=== PATIENT | male | born 1935 | race African-American/Black ===

== ENCOUNTER 2017-02-16 07:48 | Outpatient (CLI) | payer MEDICARE, BC ==
[2017-02-16 08:06] LABS: #Eosinphils 0.3 thou/uL (0.0-0.7); #Lymphocytes 1.6 thou/uL (1.20-3.40); #Monocytes 0.4 thou/uL (0.11-0.59); #Neutrophils 4.6 thou/uL (1.40-6.50); %Basophils 0.7 % (0.0-1.0); %Eosinophils 3.6 % (0.0-10.0); %Lymphocytes 23.5 % (21.0-51.0); %Monocytes 5.8 % (0.0-10.0); Hematocrit 42.6 % (42.0-52.0); Mean Platelet Volume 7.6 fL (7.4-10.4); Red Blood Cell (RBC) Count 4.49 mill/uL (4.70-6.10); White Blood Cell (WBC) Count 6.9 thou/uL (4.8-10.8)
[2017-02-16 08:10] LABS: Bilirubin Negative (Negative); Blood, Urine Negative (Negative); Glucose, Urine (Dipstick) 250 mg/dL (Negative); Ketone, Urine Negative (Negative); Nitrite Negative (Negative); Protein, Urine (Dipstick) Trace mg/dL (Neg-Trace)
[2017-02-16 08:12] LABS: Bacteria/HPF None Seen HPF (None Seen); Hyaline Casts/LPF 0-3 HYALINE CAST LPF (0-3 Hyaline); RBC/HPF 0-3 HPF (0-3); Squamous Epithelial 0-3 HPF (0-3); WBC/HPF 0-3 HPF (0-3)
[2017-02-16 08:30] LABS: ALT (SGPT) 8 U/L (8-55); AST (SGOT) 12 U/L (5-34); Alkaline Phosphatase 76 U/L (40-150); Anion Gap 12 mmol/L (10-20); BUN (Urea Nitrogen) 35 mg/dL (8.4-25.7); Bilirubin, Direct 0.2 mg/dL (0.1-0.3); Bilirubin, Total 0.4 mg/dL (0.2-1.2); Calc. Creatinine Clearance 0 mL/min (70-130); Calcium 9.2 mg/dL (7.8-10.44); Carbon Dioxide 27 mmol/L (23-31); Chloride 106 mmol/L (98-107); Estimated GFR-MDRD 26; Protein, Total 7.3 g/dL (5.8-8.1)
--- NOTE | 2017-02-16 09:10 | ULT ---
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 FINDINGS: Comparison made with exam of 01/28/16. The patient is status post left nephrectomy. The right kidney measures 11.0 cm in length without hydronephrosis. There are cysts in the right kid jackson measuring 2.5 cm and 1.0 cm, respectively. There is a small amount of post-void residual in the urinary bladder measuring 18 mL. The largest cyst, which measures 2.5 cm on the current exam, measured 3.1 cm on the previous study. IMPRESSION: Right renal cysts. POS: [facility]
--- NOTE | 2017-02-16 09:17 | RAD ---
2 VIEWS CHEST: Date: 02/16/17 COMPARISON: 01/28/16. HISTORY: Malignant neoplasm of the left kidney. FINDINGS: Two views of the chest show normal sized cardiomediastinal silhouette. There is no evidence of conso lidation, mass, or pleural effusion. The bones are unremarkable. IMPRESSION: No evidence of acute cardiopulmonary disease. POS: [facility]
== END 2017-02-16 07:49 | disposition home or self-care (01) ==
LOC: ULT 07:48
PROVIDERS: ATTEND Urology
DX: C64.2 Malignant neoplasm of left kidney, except renal pelvis (principal); N18.9 Chronic kidney disease, unspecified; Q61.3 Polycystic kidney, unspecified
CPT/HCPCS: 36415; 71020; 76775; 80048; 80076; 81001; 85025; 87086

== ENCOUNTER 2017-05-07 08:21 | Emergency (ER) | payer MEDICARE, BC ==
[2017-05-07 09:12] LABS: #Eosinphils 0.1 thou/uL (0.0-0.7); #Lymphocytes 0.4 thou/uL (1.20-3.40); #Monocytes 0.3 thou/uL (0.11-0.59); #Neutrophils 6.6 thou/uL (1.40-6.50); %Basophils 0.2 % (0.0-1.0); %Eosinophils 0.7 % (0.0-10.0); %Lymphocytes 4.9 % (21.0-51.0); %Monocytes 3.8 % (0.0-10.0); %Neutrophils 90.3 % (42.0-75.0); Hemoglobin 14.7 g/dL (14.0-18.0); Mean Corpuscular HGB CONC 31.4 g/dL (32.0-36.0); Mean Corpuscular Volume 95.6 fl (80.0-94.0); Platelet Count 217 thou/uL (130-400); RBC Distribution Width 14.6 % (11.5-14.5); White Blood Cell (WBC) Count 7.3 thou/uL (4.8-10.8)
[2017-05-07] MEDS ORDERED: Ondansetron HCl/PF 4 MG/2 ML Vial ONE (09:14)
[2017-05-07 09:37] LABS: ALT (SGPT) 12 U/L (8-55); AST (SGOT) 15 U/L (5-34); Albumin 4.1 g/dL (3.4-4.8); Alkaline Phosphatase 71 U/L (40-150); Anion Gap 17 mmol/L (10-20); BUN (Urea Nitrogen) 40 mg/dL (8.4-25.7); Bilirubin, Total 0.6 mg/dL (0.2-1.2); CK (CPK) 112 U/L (30-200); Calc. Creatinine Clearance 0 mL/min (70-130); Calcium 9.8 mg/dL (7.8-10.44); Carbon Dioxide 23 mmol/L (23-31); Chloride 103 mmol/L (98-107); Estimated GFR-MDRD 28; Globulin 4.4 g/dL (2.4-3.5); Glucose 172 mg/dL (83-110); Lipase 76 U/L (8-78); Potassium 4.9 mmol/L (3.5-5.1); Protein, Total 8.5 g/dL (5.8-8.1); Sodium 138 mmol/L (136-145)
[2017-05-07 09:40] LABS: CKMB 2.1 ng/mL (0-6.6); Troponin I 0.015 ng/mL (< 0.028)
[2017-05-07 10:42] LABS: Bilirubin Negative (Negative); Blood, Urine Moderate (Negative); Clarity CLEAR (Clear); Glucose, Urine (Dipstick) 500 mg/dL (Negative); Leukocyte Negative (Negative); Nitrite Negative (Negative); Protein, Urine (Dipstick) 100 mg/dL (Neg-Trace); Specific Gravity, Urine 1.022 (1.002-1.036); Urobilinogen 0.2 mg/dL (0.2-1.0)
[2017-05-07 10:45] LABS: Bacteria/HPF None Seen HPF (None Seen); Hyaline Casts/LPF 0-3 HYALINE CAST LPF (0-3 Hyaline); Pathc Cast-AUWi Flag 0.27 (0-2.49); Squamous Epithelial 0-3 HPF (0-3); WBC/HPF 0-3 HPF (0-3)
--- NOTE | 2017-05-07 11:34 | CT ---
CT ABDOMEN AND PELVIS WITHOUT CONTRAST: HISTORY: Abdominal pain, nausea, vomiting, and diarrhea. Diabetes and hypertension. FINDINGS: Comparison is made with the exam of 12/05/15. There are mild dependent changes of the lung bases. No free air or free fluid is seen in the abdomen or pelvis. Absence of IV contrast reduces the sensitivity of the exam, particularly for evaluation of the solid organs. Oral contrast was administered. No calcified gallstones are seen. The patient is status post left nephrectomy. No calculi are seen in the right kidney, right ureter, or the urinary bladder. No right-sided hydroureteral nephrosis is seen. Low-density lesions in the right kidney, likely cysts, are stable. A small low-density in th e inferior aspect of the right lobe of the liver also stable. The small bowel loops are not abnormally dilated. There is colonic diverticulosis without evidence o f diverticulitis. There are vascular calcifications without evidence of aneurysmal dilatation of the abdominal aorta. A normal-appearing appendix is present. There are degenerative changes in the spi ne. IMPRESSION: 1. Colonic diverticulosis. 2. Stable low-density lesions in the liver and right kidney. 3. Status post left nephrectomy. POS: [facility]
[2017-05-07] MEDS ORDERED: Iopamidol 370 76% 50 ML VIAL FS ONE (17:02)
== END 2017-05-07 11:37 | disposition home or self-care (01) ==
LOC: ERS 08:21
DX: K52.9 Noninfective gastroenteritis and colitis, unspecified (principal); K21.9 Gastro-esophageal reflux disease without esophagitis; E78.5 Hyperlipidemia, unspecified; E11.9 Type 2 diabetes mellitus without complications; I10 Essential (primary) hypertension; F17.210 Nicotine dependence, cigarettes, uncomplicated; Z79.899 Other long term (current) drug therapy
CPT/HCPCS: 74176; 80053; 81003; 81015; 82550; 82553; 83605; 83690; 84484; 85025; 93005; 96361; 96372; 96374; J2405

== ENCOUNTER 2018-02-26 10:02 | Outpatient (CLI) | payer MEDICARE, BC ==
--- NOTE | 2018-02-26 13:08 | RAD ---
CHEST 2 VIEWS: COMPARISON: 11/18/2017. HISTORY: Malignant neoplasm of kidney. Shortness of breath. FINDINGS: Slight elongation of the aorta. Normal cardiac silhouette. Pulmonary vessels and hilum are normal. Costophrenic angles are clear. No consolidation or mass. No pneumothorax or osseous abnormalities. IMPRESSION: No acute cardiopulmonary process. POS: [facility]
== END 2018-02-26 10:03 | disposition home or self-care (01) ==
LOC: RAD 10:02
PROVIDERS: ATTEND Urology
DX: C64.2 Malignant neoplasm of left kidney, except renal pelvis (principal); N28.1 Cyst of kidney, acquired
CPT/HCPCS: 36415; 71046; 80048; 80076; 81003; 87077; 87086; 87186

== ENCOUNTER 2019-03-07 10:51 | Emergency (ER) | payer MEDICARE, BC ==
--- NOTE | 2019-03-07 11:40 | RAD ---
XR Lumbar Spine 2 Or 3 View HISTORY: Bilateral hip pain radiating down legs. Back pain FINDINGS: No fracture, subluxation or bony destruction is seen. There are degenerative changes in the lower lum bar spine with mild levoscoliosis.
== END 2019-03-07 13:20 | disposition home or self-care (01) ==
LOC: ERS 10:51
DX: M46.1 Sacroiliitis, not elsewhere classified (principal); K21.9 Gastro-esophageal reflux disease without esophagitis; E78.5 Hyperlipidemia, unspecified; E11.9 Type 2 diabetes mellitus without complications; I10 Essential (primary) hypertension; Z87.891 Personal history of nicotine dependence; Z79.899 Other long term (current) drug therapy
CPT/HCPCS: 72100

== ENCOUNTER 2019-03-13 08:35 | Outpatient (CLI) | payer MEDICARE, BC ==
--- NOTE | 2019-03-13 09:07 | RAD ---
EXAM: Chest 2 views: HISTORY: Neoplasm of left kidney, polycystic kidney, chronic kidney disease COMPARISON: 06/24/2018 FINDINGS: Heart size:Within normal limits. Lungs:Clear of acute process. Atherosclerotic changes of the aorta. No confluent pneumonia, overt edema, pleural effusion, pneumothorax, or other significant acute proce ss. IMPRESSION: Atherosclerosis of the aorta. No acute intrathoracic disease.
--- NOTE | 2019-03-13 09:47 | ULT ---
US Renal Rt Unilateral History: Prior history of malignant neoplasm left kidney. Comparison: Renal ultrasound 2017 Findings: Real-time grayscale and color evaluation of the right kidney and urinary bladder was perfor med. Right kidney measures 10.2 x 6.7 x 5.5 cm. Prevoid urinary bladder volume is 89 mL. Multiple right renal cysts are similar. No renal mass, hydronephrosis, nor abnormal calcifications. Impression: Similar examination of the right kidney with renal cysts. No evidence for obstructive uro lopez.
== END 2019-03-13 08:36 | disposition home or self-care (01) ==
LOC: ULT 08:35
PROVIDERS: ATTEND Urology
DX: C64.2 Malignant neoplasm of left kidney, except renal pelvis (principal); Q61.3 Polycystic kidney, unspecified; N18.9 Chronic kidney disease, unspecified; N28.1 Cyst of kidney, acquired; I70.0 Atherosclerosis of aorta
CPT/HCPCS: 36415; 71046; 76775; 80048

== ENCOUNTER 2019-06-12 08:02 | Outpatient (CLI) | payer MEDICARE, BC ==
[2019-06-12 14:07] LABS: Prothrombin Time 13.4 SEC (12.0-14.7)
[2019-06-12 14:08] LABS: PTT 30.2 SEC (22.9-36.1)
[2019-06-12 14:10] LABS: Bacteria/HPF None Seen HPF (None Seen); Bilirubin Negative (Negative); Blood, Urine Negative (Negative); Clarity Clear (Clear); Glucose, Urine (Dipstick) 30 mg/dL (Negative); Leukocyte Negative Leu/uL (Negative); Nitrite Negative (Negative); Protein, Urine (Dipstick) 20 mg/dL (Neg-Trace); RBC/HPF 0-3 HPF (0-3); Squamous Epithelial 0-3 HPF (0-3); Urobilinogen Normal mg/dL (Less than 2); WBC/HPF 0-3 HPF (0-3)
== END 2019-06-12 08:03 | disposition home or self-care (01) ==
LOC: LABBT 08:02
PROVIDERS: ATTEND Urology
DX: Z01.818 Encounter for other preprocedural examination (principal); C64.2 Malignant neoplasm of left kidney, except renal pelvis; Q61.3 Polycystic kidney, unspecified; N18.9 Chronic kidney disease, unspecified; N28.1 Cyst of kidney, acquired; N40.1 Benign prostatic hyperplasia with lower urinary tract symptoms; R35.1 Nocturia
CPT/HCPCS: 80048; 81001; 83970; 84100; 85025; 85610; 85730; 87086; 93005; 93010

== ENCOUNTER 2019-06-20 09:27 | Outpatient (CLI) | payer MEDICARE, BC ==
--- NOTE | 2019-06-20 09:56 | ULT ---
Ultrasound of the thyroid gland: 06/20/2019 COMPARISON:None available HISTORY:Evaluate thyroid nodules TECHNIQUE: Multiplanar grayscale sonographic imaging of the thyroid gland. FINDINGS: The thyroid isthmus measures4 mm. The right lobe of the thyroid gland measures1.9 x 4.8 x 1.7 cm. The left lobe of the thyroid gland measures4.2 x 1.5 x 2.5 cm. There are 2 subcentimeter hypoechoic nodules within the left lobe measuring up to 6 mm each. No significant/solid nodule noted on either side. IMPRESSION:TI-RADS category 2-not suspicious..
== END 2019-06-20 09:28 | disposition home or self-care (01) ==
LOC: BICULT 09:27
PROVIDERS: ATTEND Otolaryngology Plastic Surgery within the Head & Neck
DX: E04.2 Nontoxic multinodular goiter (principal); D49.7 Neoplasm of unspecified behavior of endocrine glands and other parts of nervous system
CPT/HCPCS: 76536

== ENCOUNTER 2019-06-26 05:56 | Day surgery (SDC) | payer MEDICARE, BC ==
[2019-06-12 12:13] VITALS: BMI 34.4
[2019-06-26] MEDS ORDERED: Levofloxacin 500 mg/D5W 100 ml Premix Bag ONE (06:36)
[2019-06-26] MEDS ORDERED: Fentanyl 100 MCG/2 ML VIAL ONE (07:18)
[2019-06-26] MEDS ORDERED: Phenazopyridine HCl 97.5 MG TABLET ONE (08:33)
[2019-06-26] MEDS ORDERED: Morphine 2 MG/ML SYRINGE ONE (08:57)
--- NOTE | 2019-06-26 09:06 | OP ---
DATE OF PROCEDURE: 06/26/2019 PREOPERATIVE DIAGNOSIS: Benign prostatic hyperplasia. POSTOPERATIVE DIAGNOSIS: Benign prostatic hyperplasia with preoperative IPSS score of 21. PROCEDURES PERFORMED: Cystoscopy, UroLift implant x5, urethral stricture dilatation, meatal dilatation with Alta sounds. ANESTHESIA: TIVA. COMPLICATIONS: None apparent. DISPOSITION: To recovery room in stable condition. INDICATIONS FOR PROCEDURE AND HISTORY: Mr. Elliott is an 83-year-old male, who presents for UroLift. He desires less invasive approach and desires to transition off his BPH medications. Options of continuing medical therapy, TURP versus UroLift reviewed with all risks and benefits outlined, desires to proceed with UroLift. Risks and complications including, but not limited to, bleeding, pain, infection , injury to adjacent organs, chronic pain, bleeding, possible secondary procedure, encrustation of implant was reviewed with him in detail and all questions answered to his satisfaction and desired to proceed. DESCRIPTION OF PROCEDURE: After an informed consent was signed, the patient was taken to the operating room, placed in a dorsal lithotomy position with the genital area prepped and draped. A 21-Tanzanian cystoscope was utilized. This was passed atraumatically, however, it was mildly snug. Therefore, using Alta sounds his urethral meatus was calibrated from 20 Tanzanian to 26 Tanzanian with ease. The urethra demonstrated mild diffuse fibrosis. I was able to pass a 21-Tanzanian cystoscope without significant issues. 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 Prostatic urethra demonstrated bilobar hyperplasia, with slightly high median bar. The bladder was entered, which demonstrated bilateral UOs about 3 to 4 mm proximal to the bladder neck. Trabeculation noted consistent with chronic outlet obstruction with no bladder tumor or stone seen. At this time, we transitioned to a UroLift cystoscope, with a visual obturator. At this time, we implanted the left side first. Care was taken to stay about 1.5 cm proximal to the bladder neck and the left lateral implant was deployed. We subsequently passed on the right x2, and a second left lateral implant was placed sitting at the level of the veru with decompression of the mid prostatic lobe. He did have a component of a high median bar, therefore the 5th implant was placed, reducing the high median bar, moving this laterally to the left and reducing the median bar as well as the lateral component. This improved this high median bar morphology. He tolerated the procedure well. Intraoperative photos were taken. A total of three implants on the left, two on the right was placed. Bladder neck was wide open, with nice anterior channel. I did re-stage his proximal penile bulbar stricture. The bulbar stricture was somewhat close to the sphincter, therefore I did not perform DVIU. I passively dilated both strictures using a 25-Tanzanian cystoscope and it was not of clinical significance. Therefore, I did not perform a DVIU. An 18-Tanzanian 30 mL Johnson catheter was passed without significant issues. We will watch his urine output, if relatively clear , we will remove his Johnson catheter for a voiding trial before discharge. He will be discharged with Levaquin x3 days, Azo p.r.n. Will follow up with me tomorrow for PVR. Job ID: [id number] MTDD
[2019-06-26] MEDS ORDERED: PROPOFOL 200 MG/20 ML VIAL ONE (10:46)
[2019-06-26] MEDS ORDERED: Lidocaine 1% PF 5 ML VIAL ONE (10:46)
== END 2019-06-26 15:30 | disposition home or self-care (01) ==
LOC: SDC 05:56
PROVIDERS: ATTEND Urology
PROC: 0T7D8DZ Dilation of Urethra with Intraluminal Device, Via Natural or Artificial Opening Endoscopic (ICD-10-PCS; principal; 2019-06-26)
PROC: 0T7D8ZZ Dilation of Urethra, Via Natural or Artificial Opening Endoscopic (ICD-10-PCS; 2019-06-26)
DX: N40.1 Benign prostatic hyperplasia with lower urinary tract symptoms (principal); R35.0 Frequency of micturition; R35.1 Nocturia; N13.8 Other obstructive and reflux uropathy; N35.912 Unspecified bulbous urethral stricture, male; N32.89 Other specified disorders of bladder; M10.9 Gout, unspecified; M19.90 Unspecified osteoarthritis, unspecified site; I12.9 Hypertensive chronic kidney disease with stage 1 through stage 4 chronic kidney disease, or unspecified chronic kidney disease; E11.22 Type 2 diabetes mellitus with diabetic chronic kidney disease; N18.9 Chronic kidney disease, unspecified; Z85.528 Personal history of other malignant neoplasm of kidney; Z85.89 Personal history of malignant neoplasm of other organs and systems; Z87.891 Personal history of nicotine dependence; Z79.82 Long term (current) use of aspirin; Z79.84 Long term (current) use of oral hypoglycemic drugs; Z79.899 Other long term (current) drug therapy; Z90.5 Acquired absence of kidney
CPT/HCPCS: 36416; C1889; J1956; J2001; J2270; J2704; J3010

== ENCOUNTER 2019-06-29 02:51 | Emergency (ER) | payer MEDICARE, BC ==
[2019-06-29 04:11] LABS: Bilirubin Negative (Negative); Blood, Urine 3+ (Negative); Clarity Turbid (Clear); Glucose, Urine (Dipstick) 150 mg/dL (Negative); Leukocyte Negative Leu/uL (Negative); Nitrite Negative (Negative); Protein, Urine (Dipstick) 50 mg/dL (Neg-Trace); RBC/HPF Greater than 50 HPF (0-3); Squamous Epithelial None Seen HPF (0-3); Urobilinogen Normal mg/dL (Less than 2)
[2019-06-29 04:19] LABS: Anion Gap 13 mmol/L (10-20); BUN (Urea Nitrogen) 37 mg/dL (8.4-25.7); Calc. Creatinine Clearance 0 mL/min (70-130); Calcium 9.6 mg/dL (7.8-10.44); Carbon Dioxide 25 mmol/L (23-31); Chloride 106 mmol/L (98-107); Estimated GFR-MDRD 24; Glucose 163 mg/dL (83-110); Potassium 4.1 mmol/L (3.5-5.1); Sodium 140 mmol/L (136-145)
[2019-06-29 04:26] LABS: Bacteria/HPF 1+ HPF (None Seen); Trichomonas/HPF None Seen HPF (None Seen); WBC/HPF 0-3 HPF (0-3)
[2019-06-29 04:27] LABS: Yeast-Budding None Seen HPF (None Seen)
== END 2019-06-29 05:38 | disposition home or self-care (01) ==
LOC: ERS 02:51
DX: R33.9 Retention of urine, unspecified (principal); K21.9 Gastro-esophageal reflux disease without esophagitis; E78.5 Hyperlipidemia, unspecified; I10 Essential (primary) hypertension; E11.9 Type 2 diabetes mellitus without complications; Z87.891 Personal history of nicotine dependence; Z79.899 Other long term (current) drug therapy
CPT/HCPCS: 36415; 51702; 80048; 81003; 81015

== ENCOUNTER 2020-03-19 09:05 | Outpatient (CLI) | payer MEDICARE, BC ==
--- NOTE | 2020-03-19 09:20 | RAD ---
XR Chest Pa Lat STANDARD HISTORY: Malignant neoplasm of the left kidney COMPARISON: 03/13/2019 FINDINGS: The heart size is normal. The lungs are well expanded without focal areas of consolidation, pneumothorax or pleural effusions. IMPRESSION: No radiographic evidence of acute cardiopulmonary process.
== END 2020-03-19 09:06 | disposition home or self-care (01) ==
LOC: BICRAD 09:05
PROVIDERS: ATTEND Urology
DX: C64.2 Malignant neoplasm of left kidney, except renal pelvis (principal); N18.9 Chronic kidney disease, unspecified; R35.1 Nocturia; Q61.3 Polycystic kidney, unspecified
CPT/HCPCS: 36415; 71046; 80053; 81001

== ENCOUNTER 2020-03-31 13:32 | Outpatient (CLI) | payer MEDICARE, BC ==
--- NOTE | 2020-03-31 14:19 | ULT ---
RENAL ULTRASOUND: 03/31/20 HISTORY: Polycystic. Correlation made to renal ultrasound of 03/14/18. Patient is post left nephrectomy. History of prior left renal cancer. FINDINGS: Cyst in the mid right renal cortex is again seen measuring approximately 2.8 cm, unchanged in appeara nce. Right kidney is otherwise unremarkable measuring 11 cm in length. No hydronephrosis. Mild cortic al thinning which is stable. Urinary bladder is not imaged and appears to be contracted. IMPRESSION: Small right renal cyst is stable from the prior ultrasound exam of 03/14/18. POS: [facility]
== END 2020-03-31 13:33 | disposition home or self-care (01) ==
LOC: BICULT 13:32
PROVIDERS: ATTEND Urology
DX: Q61.3 Polycystic kidney, unspecified (principal); C64.2 Malignant neoplasm of left kidney, except renal pelvis; N18.9 Chronic kidney disease, unspecified; N28.1 Cyst of kidney, acquired
CPT/HCPCS: 76770

== ENCOUNTER 2020-07-01 12:51 | Outpatient (CLI) | payer MEDICARE, BC ==
--- NOTE | 2020-07-01 13:19 | ULT ---
Exam: Thyroid ultrasound COMPARISON: 06/20/2019. HISTORY: Thyroid nodules. FINDINGS: Thyroid isthmus: 0.40 cm Right thyroid lobe: 1.8 x 4.3 x 2.0 cm Left thyroid lobe: 2.0 x 4.1 x 1.5 cm Thyroid nodules: There are no solid nodules throughout the thyroid gland. In the left thyroid lobe, there are two separate anechoic foci measuring 0.6 and 0.5 cm, respectively . Two separate cysts in the left thyroid lobe are unchanged. IMPRESSION: Stable cysts in the left thyroid lobe. TI-RADS Score: TR1. Benign. Transcribed Date/Time: 07/01/2020 1:32 PM
== END 2020-07-01 12:52 | disposition home or self-care (01) ==
LOC: BICULT 12:51
PROVIDERS: ATTEND Otolaryngology Plastic Surgery within the Head & Neck
DX: E04.1 Nontoxic single thyroid nodule (principal)
CPT/HCPCS: 76536

== ENCOUNTER 2021-03-09 12:07 | Outpatient (CLI) | payer MEDICARE, BC | END 2021-03-09 12:08 | disposition home or self-care (01) | LOC: BICULT 12:07 | PROVIDERS: ATTEND Urology | DX: C64.2 Malignant neoplasm of left kidney, except renal pelvis (principal); Q61.3 Polycystic kidney, unspecified; N28.1 Cyst of kidney, acquired | CPT/HCPCS: 74018; 76770 ==